=== PATIENT | male | born 1965 | race Caucasian/White ===

== ENCOUNTER 2022-04-22 08:20 | Emergency (ER) | payer OTHER, SELFPAY ==
[2022-04-22] MEDS ORDERED: Tetracaine 0.5% PF 4 ML BOT ONE ×2 (08:54→09:07)
[2022-04-22] MEDS ORDERED: Fluorescein Opthalmic Strip ONE (08:55)
== END 2022-04-22 09:20 | disposition home or self-care (01) ==
LOC: CSHERS 08:20
DX: B34.9 Viral infection, unspecified (principal); H11.31 Conjunctival hemorrhage, right eye; H10.9 Unspecified conjunctivitis; I10 Essential (primary) hypertension; I25.10 Atherosclerotic heart disease of native coronary artery without angina pectoris; E78.5 Hyperlipidemia, unspecified
CPT/HCPCS: 99283